=== PATIENT | male | born 1955 | race Caucasian/White ===

== ENCOUNTER 2019-10-31 12:39 | Emergency (ER) | payer OTHER ==
[2019-10-31] MEDS ORDERED: MORPHINE 4 MG/ML SYR ONE (14:06)
[2019-10-31] MEDS ORDERED: ONDANSETRON 4 MG (ODT) TAB ONE (14:07)
[2019-10-31] MEDS ORDERED: DIAZEPAM 5 MG TABLET ONE (14:09)
--- NOTE | 2019-10-31 15:18 | EDPHYS ---
Physician Documentation [facility] Name: Baldev Rich Age: 64 yrs Sex: Male : 1955 Arrival Date: 10/31/2019 Time: 12:43 Bed 13 Private MD: ED Physician Justin Raza HPI: 10/30 13:32 This 64 yrs old Male presents to ER via Ambulatory with complaints of Neck jmm Pain, <24hrs Old, Sharp pain in Arm \T\ fingers. 13:32 The patient or guardian complains of pain. Onset: The symptoms/episode began/occurred jmm gradually, 2 day(s) ago. Associated signs and symptoms: Pertinent negatives: fever, headache, bladder incontinence, bowel incontinence, numbness, tingling, weakness. The pain radiates to the right arm. This is a 64 year old male with a history of DM, HTN, that presents to the ED with pain from his neck radiating into his right arm. patient has had similar episodes with pain to his left arm. patient has surgical hx of cervical spine repair. denies trauma, denies fever, denies weakness. . Historical: - Allergies: 12:56 No Known Allergies; ca1 - Home Meds: 13:27 Levemir 100 unit/mL subcutaneous soln daily [Active]; clopidogrel 75 mg Oral tab 1 tab ca1 once daily [Active]; metoprolol tartrate 100 mg Oral tab 1 tab 2 times per day [Active]; niacin 1,000 mg Oral TbER 1 tab once daily [Active]; folic acid 1 mg Oral tab twice a day [Active]; metformin 500 mg Oral Tb24 2 tabs 2 times per day [Active]; isosorbide mononitrate 60 mg Oral Tb24 1 tab once daily [Active]; telmisartan-hydrochlorothiazid 80-25 mg oral tab 1 tab once daily [Active]; fenofibrate 160 mg oral tab 1 tab once daily [Active]; amlodipine 10 mg tab 1 tab once daily [Active]; gemfibrozil 600 mg Oral tab 1 tab 2 times per day [Active]; gabapentin oral oral [Active]; Prilosec 20 mg Oral cpDR 1 cap as needed [Active]; aspirin 81 mg Oral chew 1 tab once daily [Active]; - PMHx: 12:56 Diabetes - IDDM; Hypertension; ca1 - PSHx: 12:56 Skin Cancer Removed; ca1 - Immunization history:: Adult Immunizations up to date. - Social history:: Smoking status: Patient denies any tobacco usage or history of. ROS: 13:32 Constitutional: Negative for fever, chills, and weight loss, Cardiovascular: Negative jmm for chest pain, palpitations, and edema, Respiratory: Negative for shortness of breath, cough, wheezing, and pleuritic chest pain. 13:32 Neck: Positive for pain with movement. 13:32 MS/extremity: Positive for pain. 13:32 All other systems are negative. Exam: 13:32 Constitutional: This is a well developed, well nourished patient who is awake, alert, jmm and in no acute distress. Head/Face: atraumatic. Eyes: EOMI, no conjunctival erythema appreciated ENT: Moist Mucus Membranes 13:32 Chest/axilla: Normal chest wall appearance and motion. Cardiovascular: Regular rate and rhythm. No edema appreciated Respiratory: Normal respirations, no respiratory distress appreciated Abdomen/GI: Non distended, soft Back: Normal ROM Skin: General appearance color normal 13:32 MS/ Extremity: Moves all extremities, no obvious deformities appreciated, no edema noted to the lower extremities Neuro: Awake and alert, normal gait Psych: Behavior is normal, Mood is normal, Patient is cooperative and pleasant 13:32 Neck: ROM/movement: pain, that is moderate, with any movement. 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 Vital Signs: 12:50 BP 170 / 90; Pulse 82; Resp 15 S; Temp 97.2(TE); Pulse Ox 96% on R/A; Weight 104.33 kg ca1 (R); Height 5 ft. 10 in. (177.80 cm) (R); 13:43 BP 185 / 92; Pulse 82; Resp 18; Temp 97.6; Pulse Ox 97% ; Pain 10/10; ks7 12:50 Body Mass Index 33.00 (104.33 kg, 177.80 cm) ca1 MDM: 13:32 Patient medically screened. [facility] 15:16 Data reviewed: vital signs, nurses notes. Counseling: I had a detailed discussion with andres the patient and/or guardian regarding: the historical points, exam findings, and any diagnostic results supporting the discharge/admit diagnosis, the need for outpatient follow up, to return to the emergency department if symptoms worsen or persist or if there are any questions or concerns that arise at home. ED course: Pain is relieved in the ED. Patient is advised to follow up with pain management for reevaluation. Patient understood and agrees with the plan of care. . Administered Medications: 14:04 Drug: Zofran (Ondansetron) 4 mg Route: PO; ks7 14:05 Drug: morphine 4 mg Route: IM; Site: right deltoid; ks7 14:06 Drug: Valium 5 mg Route: PO; ks7 Disposition: 15:16 Chart complete. [facility] 17:15 Co-signature as Attending Physician, Justin Raza MD. rn Disposition: 10/31/19 15:17 Discharged to Home. Impression: Radiculopathy, cervical region. - Condition is Stable. - Discharge Instructions: Cervical Radiculopathy. - Prescriptions for Zanaflex 4 mg Oral Tablet - take 1 tablet by ORAL route every 8 hours As needed; 20 tablet. - Medication Reconciliation Form, Thank You Letter, Antibiotic Education, Prescription Opioid Use form. - Follow up: Private Physician; When: 1 - 2 days; Reason: Recheck today's complaints, Continuance of care, Re-evaluation by your physician. Signatures: Severino Matos PA PA [facility] Justin Raza MD MD rn Stewart, Lisa, RN RN ls4 Kaitlin Mccartney RN RN ca1 Songcuan, Kathleen, RN RN ks7 Corrections: (The following items were deleted from the chart) 15:28 15:17 10/31/2019 15:17 Discharged to Home. Impression: Radiculopathy, cervical region. ls4 Condition is Stable. Forms are Medication Reconciliation Form, Thank You Letter, Antibiotic Education, Prescription Opioid Use. Follow up: Private Physician; When: 1 - 2 days; Reason: Recheck today's complaints, Continuance of care, Re-evaluation by your physician. [facility]
--- NOTE | 2019-10-31 15:18 | ER ---
Nurse's Notes [facility] Name: Baldev Rich Age: 64 yrs Sex: Male : 1955 Arrival Date: 10/31/2019 Time: 12:43 Bed 13 Private MD: Diagnosis: Radiculopathy, cervical region Presentation: 10/30 12:50 Chief complaint: Patient states: Neck pain more on the R side. Pt states, "it's exactly ca1 between 6th and 7th vertebrae on the R side. Been trying to see my pain doctor in [place] but I can't get a schedule this time". Pain has been on for 2.5 months, but this time, it started 3 days ago. I am Gabapentin, it helped before but not helping now. Denies any fever or any source of infection. Coronavirus screen: Proceed with normal triage. Patient denies a cough. Patient denies shortness of breath or difficulty breathing. Patient denies measured and/or subjective temperature greater than 100.4F prior to today's visit. Patient denies travel on a cruise ship or to a country the [facility] currently lists as an affected area. Patient denies contact with known and/or suspected case of COVID-19. Ebola Screen: Patient negative for fever greater than or equal to 101.5 degrees Fahrenheit, and additional compatible Ebola Virus Disease symptoms Patient denies exposure to infectious person. Patient denies travel to an Ebola-affected area in the 21 days before illness onset. No symptoms or risks identified at this time. Initial Sepsis Screen: Does the patient meet any 2 criteria? No. Patient's initial sepsis screen is negative. Does the patient have a suspected source of infection? No. Patient's initial sepsis screen is negative. Risk Assessment: Do you want to hurt yourself or someone else? Patient reports no desire to harm self or others. Onset of symptoms was October 31, 2019. 12:50 Method Of Arrival: Ambulatory ca1 12:50 Acuity: JINA 4 ca1 Triage Assessment: 14:07 General: Appears uncomfortable, well groomed, well developed, Behavior is cooperative, ks7 appropriate for age, Reports pain to R neck and upper back. radiates down R arm, tingling to R fingers. Historical: - Allergies: 12:56 No Known Allergies; ca1 - Home Meds: 13:27 Levemir 100 unit/mL subcutaneous soln daily [Active]; clopidogrel 75 mg Oral tab 1 tab ca1 once daily [Active]; metoprolol tartrate 100 mg Oral tab 1 tab 2 times per day [Active]; niacin 1,000 mg Oral TbER 1 tab once daily [Active]; folic acid 1 mg Oral tab twice a day [Active]; metformin 500 mg Oral Tb24 2 tabs 2 times per day [Active]; isosorbide mononitrate 60 mg Oral Tb24 1 tab once daily [Active]; telmisartan-hydrochlorothiazid 80-25 mg oral tab 1 tab once daily [Active]; fenofibrate 160 mg oral tab 1 tab once daily [Active]; amlodipine 10 mg tab 1 tab once daily [Active]; gemfibrozil 600 mg Oral tab 1 tab 2 times per day [Active]; gabapentin oral oral [Active]; Prilosec 20 mg Oral cpDR 1 cap as needed [Active]; aspirin 81 mg Oral chew 1 tab once daily [Active]; - PMHx: 12:56 Diabetes - IDDM; Hypertension; ca1 - PSHx: 12:56 Skin Cancer Removed; ca1 - Immunization history:: Adult Immunizations up to date. - Social history:: Smoking status: Patient denies any tobacco usage or history of. Screenin:44 Abuse screen: Denies threats or abuse. Nutritional screening: No deficits noted. ks7 Tuberculosis screening: No symptoms or risk factors identified. Fall Risk None identified. Assessment: 13:40 General: Appears uncomfortable, Behavior is cooperative, appropriate for age. Pain: ks7 Complains of pain in back, right arm and neck. Neuro: Level of Consciousness is awake, alert, obeys commands, Oriented to person, place, time, situation, Appropriate for age Biotechnologist are equal bilaterally Moves all extremities. Speech is normal, Facial symmetry appears normal, Intact. 13:49 Musculoskeletal: Reports pain in right arm and neck pt states he has had pain to R ks7 neck, upper back radiating down R arm. c/o tingling in R hand/fingers. Pt states he has had surgery to 6-8 vertebrae on L side, pain on R is similar to pain he experienced on L side. 13:53 General: PA at bedside assessing pt. ks7 Vital Signs: 12:50 BP 170 / 90; Pulse 82; Resp 15 S; Temp 97.2(TE); Pulse Ox 96% on R/A; Weight 104.33 kg ca1 (R); Height 5 ft. 10 in. (177.80 cm) (R); 13:43 BP 185 / 92; Pulse 82; Resp 18; Temp 97.6; Pulse Ox 97% ; Pain 10/10; ks7 12:50 Body Mass Index 33.00 (104.33 kg, 177.80 cm) ca1 ED Course: 12:43 Patient arrived in ED. bp1 12:50 Arm band placed on right wrist. ca1 12:55 Triage completed. ca1 13:31 Severino Matos PA is PHCP. jmm 13:31 Justin Raza MD is Attending Physician. [facility] 13:32 Nany Anna, RN is Primary Nurse. ks7 13:46 No provider procedures requiring assistance completed. ks7 13:49 Patient has correct armband on for positive identification. Placed in gown. Bed in low ks7 position. Call light in reach. Side rails up X2. 14:09 Patient did not have IV access during this emergency room visit. ks7 14:10 Resting quietly. ks7 15:15 Britni Schulz, RN is Primary Nurse. ls4 Administered Medications: 14:04 Drug: Zofran (Ondansetron) 4 mg Route: PO; ks7 14:05 Drug: morphine 4 mg Route: IM; Site: right deltoid; ks7 14:06 Drug: Valium 5 mg Route: PO; ks7 Outcome: 15:17 Discharge ordered by . [facility] 15:23 Discharged to home ambulatory. ls4 15:23 Condition: good 15:23 Discharge instructions given to patient, Instructed on discharge instructions, follow up and referral plans. medication usage. 15:28 Patient left the ED. ls4 Signatures: Severino Matos PA PA jmm Stewart, Lisa, RN RN ls4 Kaitlin Mccartney RN RN ca1 Ngozi Donis bp1 Nany Anna RN RN ks7
[2019-10-31 15:57] VITALS: BP 185/92; TEMP 97.6; O2SAT 97
== END 2019-10-31 15:28 | disposition home or self-care (01) ==
LOC: ER 12:39
DX: M54.12 Radiculopathy, cervical region (principal); I10 Essential (primary) hypertension; E11.9 Type 2 diabetes mellitus without complications; Z79.4 Long term (current) use of insulin; Z85.828 Personal history of other malignant neoplasm of skin
CPT/HCPCS: 96372; 99283

== ENCOUNTER 2022-07-02 13:51 | Emergency (ER) | payer OTHER ==
--- NOTE | 2022-07-02 14:10 | EDPHYS ---
Physician Documentation [facility] Name: Baldev Rich Age: 67 yrs Sex: Male : 1955 Arrival Date: 07/02/2022 Time: 13:55 Bed Waiting Private MD: Elen Ng ED Physician Ariel Palacios MDM: 07/02 14:01 Patient medically screened. kb Administered Medications: No medications were administered Disposition Summary: 07/02/22 14:09 Discharge Ordered Location: Home kb Condition: Stable kb Diagnosis - Periapical abscess without sinus kb Followup: kb - With: Emergency Department - When: As needed - Reason: Worsening of condition Followup: kb - With: Private Physician - When: 2 - 3 days - Reason: Recheck today's complaints, Continuance of care, Re-evaluation by your physician Discharge Instructions: - Discharge Summary Sheet kb - Dental Pain, [id number] kb - Dental Abscess, [id number] kb Forms: - Medication Reconciliation Form kb - Thank You Letter kb - Antibiotic Education kb - Prescription Opioid Use kb Prescriptions: - Augmentin 875-125 mg Oral Tablet - take 1 tablet by ORAL route every 12 hours for 10 days; 20 tablet; Refills: 0, kb Product Selection Permitted - Diclofenac Sodium 75 mg Oral tablet,delayed release (DR/EC) - take 1 tablet by ORAL route 2 times per day As needed; 30 tablet; Refills: 0, kb Product Selection Permitted Signatures: Summer Pearson, JUANA MAYO-Harveyb
[2022-07-02] MEDS ORDERED: HYDROCODONE/APAP 10/325 TAB ONE (14:22)
[2022-07-02] MEDS ORDERED: AMOX/K CLAV 875 MG TAB ONE (14:22)
[2022-07-02 14:50] VITALS: BP 200/81; TEMP 98.2; O2SAT 96
== END 2022-07-02 14:26 | disposition home or self-care (01) ==
LOC: ER 13:51
DX: K04.7 Periapical abscess without sinus (principal)
CPT/HCPCS: 99283